=== PATIENT | male | born 1960 | race Caucasian/White ===

== ENCOUNTER 2018-07-16 12:48 | Emergency (ER) | payer OTHER ==
[~2018-07-16] VITALS: Wt 81.0 kg
[2018-07-16] MEDS ORDERED: GABA100C14 PO (17:49)
[2018-07-16] MEDS ORDERED: IBUP-1542 PO (17:49)
[2018-07-16 18:03] VITALS: BP 144/88; PULSE 96; RESP 16
--- NOTE | 2018-07-16 21:06 | ERD ---
ER Documentation Chief Complaint Chief Complaint RIGHT FACIAL PAIN X5 MONTHS, PAIN GETTING WORSE, PMD REFERAL ROS All systems reviewed and are negative except as per history of present illness. Medications Home Meds Active Scripts Gabapentin* (Gabapentin*) 100 Mg Capsule, 100 MG PO TID PRN for PAIN, #30 CAP Prov:ROSA LAY DO 07/16/18 Ibuprofen* (Motrin*) 600 Mg Tab, 600 MG PO Q6H PRN for PAIN AND OR ELEVATED TEMP, #30 TAB Prov:ROSA LAY DO 07/16/18 PMhx/Soc Medical and Surgical Hx: pt denies Medical Hx, pt denies Surgical Hx Hx Alcohol Use: No Hx Substance Use: No Hx Tobacco Use: No Smoking Status: Never smoker Physical Exam Vitals Vital Signs Date Temp Pulse Resp B/P (MAP) Pulse Ox O2 O2 Flow FiO2 Time Delivery Rate 07/16/18 96 16 144/88 98 Room Air 18:03 (106) 07/16/18 98.1 102 16 159/96 98 12:58 (117) Physical Exam Const: No acute distress Head: Atraumatic Eyes: Normal Conjunctiva ENT: Normal External Ears, Nose and Mouth. Neck: Full range of motion. No meningismus. Resp: Clear to auscultation bilaterally Cardio: Regular rate and rhythm, no murmurs Abd: Soft, non tender, non distended. Normal bowel sounds Skin: No petechiae or rashes Back: No midline or flank tenderness Ext: No cyanosis, or edema Neur: Awake and alert Psych: Normal Mood and Affect Departure Diagnosis: Primary Impression: Face pain Condition: Fair Patient Instructions: Pain Management Referrals: [facility] YOU HAVE RECEIVED A MEDICAL SCREENING EXAM AND THE RESULTS INDICATE THAT YOU DO NOT HAVE A CONDITION THAT REQUIRES URGENT TREATMENT IN THE EMERGENCY DEPARTMENT. FURTHER EVALUATION AND TREATMENT OF YOUR CONDITION CAN WAIT UNTIL YOU ARE SEEN IN YOUR DOCTORS OFFICE WITHIN THE NEXT 1-2 DAYS. IT IS YOUR RESPONSIBILITY TO MAKE AN APPOINTMENT FOR FOLOW-UP CARE. IF YOU HAVE A PRIMARY DOCTOR --you should call your primary doctor and schedule an appointment IF YOU DO NOT HAVE A PRIMARY DOCTOR YOU CAN CALL OUR PHYSICIAN REFERRAL HOTLINE AT IF YOU CAN NOT AFFORD TO SEE A PHYSICIAN YOU CAN CHOSE FROM THE FOLLOWING [facility] [address] [facility]. [facility] [address] [facility]. [facility] [address] [facility] [address] [facility]. [facility] [address] [facility]. [facility] [address] Additional Instructions: Llame al doctor MAANA y navjot lorena IVANA PARA DENTRO DE 1-2 [place].Dgale a la secretaria que nosotros le instruimos hacer esta ivana.Avise o llame si hermosillo condicin se empeora antes de la ivana. Regresa aqui si peor o no mejor. ROSA LAY DO Jul 16, 2018 21:06
== END 2018-07-16 18:05 | disposition home or self-care (01) ==
LOC: FTE 12:48
DX: R51 Headache (principal)
CPT/HCPCS: 70450; 70486; Z7502